=== PATIENT | male | born 1990 | race Hispanic/Latino ===

== ENCOUNTER 2018-10-18 14:56 | Emergency (ER) | payer BC, SELFPAY ==
[2018-10-18] MEDS ORDERED: Lidocaine 1% w/Epinephrine 1:100K 20 ML VIAL ONE (17:31)
== END 2018-10-18 18:25 | disposition home or self-care (01) ==
LOC: ERS 14:56
DX: L02.415 Cutaneous abscess of right lower limb (principal); M79.81 Nontraumatic hematoma of soft tissue; F41.9 Anxiety disorder, unspecified
CPT/HCPCS: 27301; 87070; 87205; J2001

== ENCOUNTER 2022-03-02 13:20 | Emergency (ER) | payer SELFPAY ==
[2022-03-02] MEDS ORDERED: Ibuprofen 200 MG TAB ONE (13:45)
[2022-03-02] MEDS ORDERED: HYDROcodone/Acetaminophen 5/325 mg Tablet ONE (13:45)
== END 2022-03-02 15:20 | disposition home or self-care (01) ==
LOC: ERS 13:20
DX: T21.25XA Burn of second degree of buttock, initial encounter (principal); T31.0 Burns involving less than 10% of body surface; X08.8XXA Exposure to other specified smoke, fire and flames, initial encounter
CPT/HCPCS: 99283

== ENCOUNTER 2023-04-08 11:39 | Emergency (ER) | payer SELFPAY | END 2023-04-08 12:18 | disposition home or self-care (01) | LOC: ERS 11:39 | DX: L02.01 Cutaneous abscess of face (principal); I10 Essential (primary) hypertension | CPT/HCPCS: 99283 ==

== ENCOUNTER 2023-04-24 14:42 | Emergency (ER) | payer SELFPAY ==
[2023-04-24] MEDS ORDERED: Ketorolac Tromethamine 30 MG/ML VIAL ONE (16:08)
== END 2023-04-24 16:54 | disposition home or self-care (01) ==
LOC: ERS 14:42
DX: S93.491A Sprain of other ligament of right ankle, initial encounter (principal); I10 Essential (primary) hypertension; W18.42XA Slipping, tripping and stumbling without falling due to stepping into hole or opening, initial encounter; Z79.899 Other long term (current) drug therapy
CPT/HCPCS: 96372; J1885

== ENCOUNTER 2023-05-10 23:22 | Inpatient (IN) | payer SELFPAY ==
[2023-05-11 00:02] LABS: #Basophils 0.1 thou/uL (0.0-0.2); #Eosinphils 0.2 thou/uL (0.0-0.7); #Monocytes 1.2 thou/uL (0.11-0.59); #Neutrophils 7.3 thou/uL (1.40-6.50); %Basophils 0.4 % (0.0-1.0); %Eosinophils 2.1 % (0.0-10.0); %Lymphocytes 22.5 % (21.0-51.0); %Monocytes 10.7 % (0.0-10.0); %Neutrophils 63.4 % (42.0-75.0); Hematocrit 48.6 % (42.0-52.0); Mean Corpuscular Hemoglobin 30.5 pg (27.0-31.0); Mean Corpuscular Volume 87.1 fl (78.0-98.0); Mean Platelet Volume 10.8 fL (7.4-10.4); Platelet Count 379 10x3/uL (130-400); RBC Distribution Width 12.6 % (11.5-14.5); Red Blood Cell (RBC) Count 5.58 mill/uL (4.70-6.10); White Blood Cell (WBC) Count 11.6 10x3/uL (4.8-10.8)
[2023-05-11] MEDS ORDERED: TETANUS, DIPHTHERIA TOX,ADULT (TDVAX) 0.5 ML VIAL IM ONE (00:03)
[2023-05-11] MEDS ORDERED: CEFAZOLIN 2 GM VIAL ONE ×2 (00:03→07:27)
[2023-05-11] MEDS ORDERED: HYDROmorphone 0.5 MG/0.5 ML SYRINGE ONE ×3 (00:03→04:32)
[2023-05-11 00:21] LABS: INR-International Normal Ratio 0.9; Prothrombin Time 12.8 sec (12.0-14.7)
[2023-05-11] MEDS ORDERED: Lidocaine 1% PF 5 ML VIAL ONE ×2 (00:21→07:46)
[2023-05-11 00:22] LABS: PTT 28.5 sec (22.9-36.1)
[2023-05-11 01:04] LABS: Calcium 8.7 mg/dL (7.8-10.44); Chloride 105 mmol/L (98-107); Potassium 3.6 mmol/L (3.5-5.1); Sodium 137 mmol/L (136-145)
[2023-05-11 01:05] LABS: Glucose 91 mg/dL (70-105)
[2023-05-11 01:06] LABS: Anion Gap 14 mmol/L (10-20); Carbon Dioxide 22 mmol/L (22-29)
[2023-05-11 01:08] LABS: Calc. Creatinine Clearance 0 mL/min (70-130); Estimated GFR 101
[2023-05-11 01:09] LABS: BUN (Urea Nitrogen) 17 mg/dL (8.9-20.6)
[2023-05-11] MEDS ORDERED: Morphine 4 MG/ML VIAL ONE (01:28)
[2023-05-11] MEDS ORDERED: Ondansetron PF 4 MG/2 ML Vial ONE ×2 (01:28→07:46)
[2023-05-11] MEDS ORDERED: Ondansetron PF 4 MG/2 ML Vial IVP PRN (02:26)
[2023-05-11] MEDS ORDERED: Dextrose 5% in Water 1,000 ML IV PRN (02:26)
[2023-05-11] MEDS ORDERED: Promethazine HCl 25 MG/ML VIAL IM PRN ×4 (02:26→08:23)
[2023-05-11] MEDS ORDERED: Glucagon 1 MG/ML KIT IM PRN (02:26)
[2023-05-11] MEDS ORDERED: Ondansetron ODT 4 MG TAB PO PRN (02:26)
[2023-05-11] MEDS ORDERED: Dextrose 50% Abboject 50 ML SYRINGE SLOW IVP PRN (02:26)
[2023-05-11] MEDS ORDERED: traMADol HCl 50 MG TAB PO PRN (02:29)
[2023-05-11] MEDS ORDERED: Lorazepam 0.5 MG TAB PO PRN (02:30)
[2023-05-11] MEDS ORDERED: Lorazepam 1 MG TAB ONE (02:43)
[2023-05-11] MEDS ORDERED: HYDROmorphone 0.5 MG/0.5 ML SYRINGE SLOW IVP PRN (02:53)
[2023-05-11 03:16] LABS: Hematocrit 42.6 % (42.0-52.0); Hemoglobin 14.5 g/dL (14.0-18.0)
[2023-05-11] MEDS ORDERED: Sodium Chloride 0.9% 1,000 ML IV SCH (03:30)
[2023-05-11] MEDS ORDERED: traMADol HCl 50 MG TAB PO SCH (06:00)
[2023-05-11] MEDS ORDERED: diphenhydrAMINE 25 MG CAP PO PRN (07:05)
[2023-05-11] MEDS ORDERED: HYDROmorphone 10 mg/100 ml CADD IVPB PRN (07:05)
[2023-05-11] MEDS ORDERED: diphenhydrAMINE 50 MG/ML VIAL IVP PRN (07:05)
[2023-05-11] MEDS ORDERED: Naloxone HCl 0.4 mg/ml Vial IV PRN (07:05)
[2023-05-11] MEDS ORDERED: Communication Order-Pharmacy FS SCH (07:15)
[2023-05-11] MEDS ORDERED: Sodium Chloride 0.9% 100 ML ONE (07:27)
[2023-05-11] MEDS ORDERED: Fentanyl 250 MCG/5 ML VIAL ONE (07:31)
[2023-05-11] MEDS ORDERED: Midazolam HCl 2 mg/2 ml Vial ONE (07:39)
[2023-05-11] MEDS ORDERED: Ketorolac Tromethamine 30 MG/ML VIAL ONE (07:46)
[2023-05-11] MEDS ORDERED: Dexamethasone 20 MG/5 ML VIAL ONE (07:46)
[2023-05-11] MEDS ORDERED: PROPOFOL 200 MG/20 ML VIAL ONE (07:46)
[2023-05-11] MEDS ORDERED: Dexmedetomidine 200 MCG/2 ML VIAL ONE (08:10)
[2023-05-11] MEDS ORDERED: Ondansetron HCl/PF 4 MG/2 ML Vial IVP PRN ×2 (08:23)
[2023-05-11] MEDS ORDERED: Meperidine HCl/PF 25 MG/ML VIAL SLOW IVP PRN (08:23)
[2023-05-11] MEDS ORDERED: HYDROmorphone 2 MG/ML VIAL SLOW IVP PRN (08:23)
[2023-05-11] MEDS ORDERED: PHENYLEPHRINE-NS 100 MCG/ML 10 ML SYRINGE ONE (08:54)
[2023-05-11] MEDS ORDERED: Phenylephrine 10 MG/ML VIAL ONE (08:54)
[2023-05-11] MEDS ORDERED: Ascorbic Acid 500 mg Chewable Tablet PO SCH (09:00)
[2023-05-11] MEDS ORDERED: Famotidine 20 MG TAB PO SCH (09:00)
[2023-05-11] MEDS ORDERED: fentaNYL 50 mcg/mL 1 mL Vial ONE (09:57)
[2023-05-11] MEDS ORDERED: Promethazine HCl 25 MG/ML VIAL ONE (13:19)
[2023-05-11] MEDS: Ferrous Sulfate 325 MG TAB PO SCH ×2 (13:45→17:23)
[2023-05-11] MEDS: Ibuprofen 200 MG TAB PO SCH ×2 (13:45→14:18)
[2023-05-11] MEDS: Acetaminophen 325 MG TAB PO SCH (13:45)
[2023-05-11 13:56] LABS: Hemoglobin 8.3 g/dL (14.0-18.0)
[2023-05-11] MEDS ORDERED: CEFAZOLIN 2 GM in Sodium Chloride 0.9% 100 ML IVPB SCH (14:00)
[2023-05-11 14:52] VITALS: BMI 30.2
[2023-05-11 15:01] VITALS: BP 140/94; TEMP 97.8
== END 2023-05-11 16:38 | disposition home or self-care (01) | DRG 502 ==
LOC: ERS 23:22 → ERHOLD 05-11 02:26 → SURG B 05-11 06:22
PROVIDERS: ADMIT Surgery; ATTEND Surgery
PROC: 0XQ90ZZ Repair Left Upper Arm, Open Approach (ICD-10-PCS; principal; 2023-05-11)
PROC: 0KB80ZZ Excision of Left Upper Arm Muscle, Open Approach (ICD-10-PCS; 2023-05-11)
DX: S46.222A Laceration of muscle, fascia and tendon of other parts of biceps, left arm, initial encounter (principal); I10 Essential (primary) hypertension; S46.822A Laceration of other muscles, fascia and tendons at shoulder and upper arm level, left arm, initial encounter; F41.9 Anxiety disorder, unspecified; G89.11 Acute pain due to trauma; W19.XXXA Unspecified fall, initial encounter; Z98.890 Other specified postprocedural states; Z88.2 Allergy status to sulfonamides
CPT/HCPCS: 36415; 80048; 85014; 85018; 85025; 85610; 85730; 90471; 90714; 96365; 96375; 96376; 97139; J1100; J1170; J1885; J2250; J2270; J2370; J2405; J2550; J2704; J3010; J3490